=== PATIENT | female | born 1970 | race Caucasian/White ===

== ENCOUNTER 2017-08-17 10:01 | Emergency (ER) | payer BC ==
--- NOTE | 2017-08-17 10:23 | EDM.PDOC ---
ED HPI GENERAL MEDICAL PROBLEM - General Chief Complaint: Skin Complaint Stated Complaint: LUMP UNDER LT ARMPIT Time Seen by Provider: 08/17/17 10:11 Source of Information: Reports: Patient History Limitations: Reports: No Limitations - History of Present Illness INITIAL COMMENTS - FREE TEXT/NARRATIVE: HISTORY AND PHYSICAL: History of present illness: Patient is a 47-year-old female who presents to the emergency room today with complaints of swollen painful "lumps" under the left axillary area. She states that approximately a week ago she noticed one large "lump" which she said that "popped" and drained purulent fluid. Since that time she has had several small lumps in the same area which are tender to palpation, swollen and red. She denies any change in her deodorants or shampoos. She is unaware if she has any history of MRSA. She does shave her under arms routinely. Review of systems: As per history of present illness and below otherwise all systems reviewed and negative. Past medical history: As per history of present illness and as reviewed below otherwise noncontributory. Surgical history: As per history of present illness and as reviewed below otherwise noncontributory. Social history: No reported history of drug or alcohol abuse. Family history: As per history of present illness and as reviewed below otherwise noncontributory. Physical exam: General: Well-developed and well-nourished 47-year-old female. Alert and oriented. Appears nontoxic and in no acute distress. HEENT: Atraumatic, normocephalic, pupils reactive, negative for conjunctival pallor or scleral icterus, mucous membranes moist, throat clear, neck supple, nontender, trachea midline. Lungs: Clear to auscultation, breath sounds equal bilaterally, chest nontender. Heart: S1S2, regular, negative for clicks, rubs, or JVD. Abdomen: Soft, nondistended, nontender. Negative for masses or hepatosplenomegaly. Negative for costovertebral tenderness. Pelvis: Stable nontender. Genitourinary: Deferred. Rectal: Deferred. Skin: Patient has several small cystic appearing abscesses to the left axilla in various sizes ranging from 2 mm to 5 mm in diameter. They are erythematous, firm to touch, unable to express any drainage from the site. She has freshly shaven her under arms and this does appear to be like a folliculitis. Extremities: Atraumatic, negative for cords or calf pain. Neurovascular unremarkable. Neuro: Awake, alert, oriented. Cranial nerves II through XII unremarkable. Cerebellum unremarkable. Motor and sensory unremarkable throughout. Exam nonfocal. Patient is unaware if she has any history of MRSA. She does shave her under arms routinely. These cysts appear to be like a folliculitis. We discussed abstaining from shaving her under arms until the sores have dissipated. We'll place her on Bactrim DS 1 tablet twice a day 10 days. She is expressing concern that Tylenol and ibuprofen have not been helping with pain as she is unable to rest her arm down against her side due to the pressure. Give her some tramadol as needed for nighttime use, dispense 15, no refill. Encouraged her to use gentle heat packs to the area. She will follow-up with either her primary care provider or she may follow-up with Dr. Orozco for reevaluation. Diagnostics: [] Therapeutics: [] Impression: Folliculitis versus abscess Plan: 1. Please take the Bactrim 1 tab twice daily x 10 days. Please monitor for signs of improvement as we discussed. 2. Tylenol and/or ibuprofen as needed for daytime use. He may use the tramadol in the evening or nighttime use as this may cause drowsiness. Do not drive on this medication or when he need to be functioning outside of the house. Please apply gentle heat to the area several times per day as this may help draw the infection towards the surface. 3. No shaving to be under arms until the abscesses have cleared. 4. Follow-up with either your primary care provider or the plastic surgeon, Dr. Leila Orozco for further evaluation. Return to the ED as needed and as discussed. Definitive disposition and diagnosis as appropriate pending reevaluation and review of above. left armpit Pain Score (Numeric/FACES): 8 - Related Data Allergies Allergy/AdvReac Type Severity Reaction Status Date / Time No Known Allergies Allergy Verified 08/17/17 10:20 Home Meds: Home Meds . [No Known Home Meds] 08/17/17 [History] ED ROS GENERAL - Review of Systems Review Of Systems: ROS reveals no pertinent complaints other than HPI. ED EXAM, SKIN/RASH Exam: See Below (See dictation) Course - Vital Signs Last Recorded V/S: Last Vital Signs Temp 96.6 F 08/17/17 10:20 Pulse 86 08/17/17 10:20 Resp 18 08/17/17 10:20 BP 143/82 H 08/17/17 10:20 Pulse Ox 98 08/17/17 10:20 Departure - Departure Time of Disposition: 10:44 Disposition: Home, Self-Care 01 Clinical Impression: Abscess - Discharge Information Referrals: PCP,None [Primary Care Provider] - Forms: ED Department Discharge Additional Instructions: My general discharge The following information is given to patients seen in the emergency department who are being discharged to home. This information is to outline your options for follow-up care. We provide all patients seen in our emergency department with a follow-up referral. The need for follow-up, as well as the timing and circumstances, are variable depending upon the specifics of your emergency department visit. If you don't have a primary care physician on staff, we will provide you with a referral. We always advise you to contact your personal physician following an emergency department visit to inform them of the circumstance of the visit and for follow-up with them and/or the need for any referrals to a consulting specialist. The emergency department will also refer you to a specialist when appropriate. This referral assures that you have the opportunity for follow-up care with a specialist. All of these measure are taken in an effort to provide you with optimal care, which includes your follow-up. Under all circumstances we always encourage you to contact your private physician who remains a resource for coordinating your care. When calling for follow-up care, please make the office aware that this follow-up is from your recent emergency room visit. If for any reason you are refused follow-up, please contact the [facility] Emergency Department at and asked to speak to the emergency department charge nurse. [facility] [address] [place] [id number] 1. Please take the Bactrim 1 tab twice daily x 10 days. Please monitor for signs of improvement as we discussed. 2. Tylenol and/or ibuprofen as needed for daytime use. He may use the tramadol in the evening or nighttime use as this may cause drowsiness. Do not drive on this medication or when he need to be functioning outside of the house. Please apply gentle heat to the area several times per day as this may help draw the infection towards the surface. 3. No shaving to be under arms until the abscesses have cleared. 4. Follow-up with either your primary care provider or the plastic surgeon, Dr. Leila Orozco for further evaluation. Return to the ED as needed and as discussed.
== END 2017-08-17 11:05 | disposition home or self-care (01) ==
LOC: MW.ED 10:01
DX: L02.412 Cutaneous abscess of left axilla (principal)
CPT/HCPCS: 99283

== ENCOUNTER 2019-10-10 23:32 | Emergency (ER) | payer BC ==
--- NOTE | 2019-10-11 00:01 | EDM.PDOC ---
ED HPI GENERAL MEDICAL PROBLEM - General Chief Complaint: Chest Pain Stated Complaint: CHEST PAIN Time Seen by Provider: 10/10/19 23:59 Source of Information: Reports: Patient History Limitations: Reports: No Limitations - History of Present Illness INITIAL COMMENTS - FREE TEXT/NARRATIVE: Patient 49-year-old female presenting with chief complaint of chest pain. Patient states the pain is been for the past 3 days. Patient states pain is on left-sided chest without radiation. Patient states that the pain is worse when she takes a deep breath. Patient denies any cough fevers or chills. Patient does report associated shortness of breath. Patient denies any exertional symptoms. Patient states that she does feel some occasional lightheadedness but has not had a syncopal episode. Patient denies any recent travels, recent hospitalizations, recent sick contacts, history of DVT or PE, calf pain or lower extremity swelling. Pmhx: Hypertension Pshx: None Family Hx: noncontributory Smoking history? Daily Etoh use? none Drug use? none In addition to that documented in the HPI above, the additional ROS was obtained : Constitutional: Denies fevers or chills Eyes: Denies vision changes ENMT: Denies sore throat CV: Per HPI Resp: Per HPI GI: Denies vomiting or diarrhea : Denies painful urination MSK: Denies recent trauma Skin: Denies new rashes Neuro: Denies new numbness or tingling or weakness Endocrine: Denies unexpected weight loss Heme: Denies bleeding disorders I have reviewed the triage vital signs Const: Well nourished, well developed, appears stated age Eyes: PERRL, no conjunctival injection HENT: NCAT, Neck supple without meningismus CV: RRR, Warm, well-perfused extremities RESP: CTAB, Unlabored respiratory effort GI: soft, non-tender, non-distended, no masses MSK: No gross deformities appreciated Skin: Warm, dry. No rashes Neuro: Alert, train director II-XII grossly intact. Sensation and motor function of extremities grossly intact. Psych: Appropriate mood and affect Assessment and plan: Patient is a 49-year-old female presenting with chief complaint of chest pain. Patient had uncomplicated emergency department stay. Differential diagnosis considered were ACS, pulmonary embolism, pneumonia, atypical chest pain. Patient's EKG was within normal limits. Patient's initial troponin was negative. Patient has a heart score of 2. Patient is PERC negative. Chest x- ray was within normal limits. Patient reevaluated and states she feels well and wished to go home. We discussed return precautions. Patient agrees with plan. Left Upper Chest Pain Score (Numeric/FACES): 4 - Related Data Allergies Allergy/AdvReac Type Severity Reaction Status Date / Time No Known Allergies Allergy Verified 10/10/19 23:41 Home Meds: Home Meds Lisinopril [Zestril] 5 mg PO DAILY 10/10/19 [History] Past Medical History - Past Health History Medical/Surgical History: Denies Medical/Surgical History Cardiovascular History: Reports: Hypertension Social & Family History - Family History Family Medical History: Noncontributory - Tobacco Use Smoking Status *Q: Current Every Day Smoker Years of Tobacco use: 25 Packs/Tins Daily: 1 - Caffeine Use Caffeine Use: Reports: Coffee - Recreational Drug Use Recreational Drug Use: No ED ROS GENERAL - Review of Systems Review Of Systems: See Below ED EXAM, GENERAL - Physical Exam Exam: See Below Course - Vital Signs Last Recorded V/S: Last Vital Signs Temp 35.8 C L 10/10/19 23:38 Pulse 73 10/11/19 00:30 Resp 18 10/11/19 00:30 BP 119/73 10/11/19 00:30 Pulse Ox 98 10/11/19 00:30 - Orders/Labs/Meds Labs: Laboratory Tests 10/10/19 10/10/19 10/10/19 Range/Units 23:42 23:42 23:42 WBC 10.42 (4.0-11.0) K/uL RBC 5.06 (4.30-5.90) M/uL Hgb 15.0 (12.0-16.0) g/dL Hct 44.4 (36.0-46.0) % MCV 87.7 (80.0-98.0) fL MCH 29.6 (27.0-32.0) pg MCHC 33.8 (31.0-37.0) g/dL RDW Std Deviation 44.7 (28.0-62.0) fl RDW Coeff of Nahomi 14 (11.0-15.0) % Plt Count 274 (150-400) K/uL MPV 10.60 (7.40-12.00) fL Neut % (Auto) 63.4 (48.0-80.0) % Lymph % (Auto) 27.4 (16.0-40.0) % [place] % (Auto) 8.1 (0.0-15.0) % Eos % (Auto) 0.8 (0.0-7.0) % Baso % (Auto) 0.3 (0.0-1.5) % Neut # (Auto) 6.6 H (1.4-5.7) K/uL Lymph # (Auto) 2.9 H (0.6-2.4) K/uL [place] # (Auto) 0.8 (0.0-0.8) K/uL Eos # (Auto) 0.1 (0.0-0.7) K/uL Baso # (Auto) 0.0 (0.0-0.1) K/uL Nucleated RBC % 0.0 /100WBC Nucleated RBCs # 0 K/uL D-Dimer, Quantitative 0.24 (0.0-0.50) mg/L FEU Sodium 140 (136-145) mmol/L Potassium 4.2 (3.5-5.1) mmol/L Chloride 103 (98-107) mmol/L Carbon Dioxide 25.3 (21.0-32.0) mmol/L BUN 16 (7.0-18.0) mg/dL Creatinine 0.9 (0.6-1.0) mg/dL Est Cr Clr Drug Dosing 67.29 mL/min Estimated GFR (MDRD) > 60.0 ml/min Glucose 103 (74-106) mg/dL Calcium 9.7 (8.5-10.1) mg/dL Total Bilirubin 0.8 (0.2-1.0) mg/dL AST 20 (15-37) IU/L ALT 21 (14-63) IU/L Alkaline Phosphatase 67 (46-116) U/L Troponin I < 0.050 (0.000-0.056) ng/mL Total Protein 7.7 (6.4-8.2) g/dL Albumin 4.1 (3.4-5.0) g/dL Globulin 3.6 (2.6-4.0) g/dL Albumin/Globulin Ratio 1.1 (0.9-1.6) Departure - Departure Time of Disposition: 00:56 Disposition: Home, Self-Care 01 Clinical Impression: Atypical chest pain Instructions: Nonspecific Chest Pain, Adult Referrals: PCP,None [Primary Care Provider] - Forms: ED Department Discharge Additional Instructions: The following information is given to patients seen in the emergency department who are being discharged to home. This information is to outline your options for follow-up care. We provide all patients seen in our emergency department with a follow-up referral. The need for follow-up, as well as the timing and circumstances, are variable depending upon the specifics of your emergency department visit. If you don't have a primary care physician on staff, we will provide you with a referral. We always advise you to contact your personal physician following an emergency department visit to inform them of the circumstance of the visit and for follow-up with them and/or the need for any referrals to a consulting specialist. The emergency department will also refer you to a specialist when appropriate. This referral assures that you have the opportunity for follow-up care with a specialist. All of these measure are taken in an effort to provide you with optimal care, which includes your follow-up. Under all circumstances we always encourage you to contact your private physician who remains a resource for coordinating your care. When calling for follow-up care, please make the office aware that this follow-up is from your recent emergency room visit. If for any reason you are refused follow-up, please contact the [facility] Emergency Department at and asked to speak to the emergency department charge nurse. Sepsis Event Note - Evaluation Sepsis Screening Result: No Definite Risk - Focused Exam Vital Signs: Vital Signs Temp Pulse Resp BP Pulse Ox 10/11/19 00:30 73 18 119/73 98 10/10/19 23:38 35.8 C L 91 18 142/96 H 97 Date Exam was Performed: 10/11/19 Time Exam was Performed: 02:07
--- NOTE | 2019-10-11 00:21 | CR ---
INDICATION: Chest pain, shortness of breath times 2 days TECHNIQUE: Chest radiograph 1 view COMPARISON: None FINDINGS: Mediastinum: The mediastinum is normal in appearance. The heart silhouette is normal in size and morphology. Lung: Both lungs are unremarkable in appearance. No sign of pleural effusion seen. No pneumothorax is identified. Bone and Soft tissue: Unremarkable for age. IMPRESSION: 1. No acute cardiopulmonary disease is seen. Dictated by: Minh Hays MD @ 10/11/2019 00:18:48 (Electronically Signed)
[2019-10-11 00:27] LABS: BLOOD UREA NITROGEN,BUN 16 mg/dL (7.0-18.0); CARBON DIOXIDE,CO2 25.3 mmol/L (21.0-32.0); CHLORIDE,CL 103 mmol/L (98-107); GLUCOSE RANDOM 103 mg/dL (74-106); POTASSIUM,K 4.2 mmol/L (3.5-5.1); SODIUM,NA 140 mmol/L (136-145)
== END 2019-10-11 01:06 | disposition home or self-care (01) ==
LOC: MW.ED 23:32
DX: R07.89 Other chest pain (principal); I10 Essential (primary) hypertension; Z79.899 Other long term (current) drug therapy; F17.210 Nicotine dependence, cigarettes, uncomplicated
CPT/HCPCS: 36415; 71045; 71045-26; 80053; 84484; 85025; 85379; 93005; 99284; 99285-25

== ENCOUNTER 2021-10-15 17:45 | Emergency (ER) | payer SELFPAY ==
[2021-10-15] MEDS ORDERED: Amoxicillin/Clavulanate K 875-125 MG Tab PO STA (18:09)
[2021-10-15] MEDS ORDERED: Acetaminophen/oxyCODONE 325-10 MG Tab PO ONE (18:10)
[2021-10-15] MEDS ORDERED: Bacitracin Oint 1 GM U/D Packet ONE (19:06)
== END 2021-10-15 19:21 | disposition home or self-care (01) ==
LOC: MW.ED 17:45
DX: S51.852A Open bite of left forearm, initial encounter (principal); I10 Essential (primary) hypertension; W54.0XXA Bitten by dog, initial encounter
CPT/HCPCS: 73090; 99283; A9270